=== PATIENT | male | born 1960 | race Caucasian/White ===

== ENCOUNTER → 2018-06-19 | Outpatient (CLI) | payer OTHER | END | disposition home or self-care (01) | LOC: PLD 07:54 → LAB SHORT 07:54 | DX: L57.0 Actinic keratosis (principal); L90.5 Scar conditions and fibrosis of skin | CPT/HCPCS: 88305 ==

== ENCOUNTER 2021-05-07 21:40 | Observation (INO) | payer OTHER ==
[~2021-05-07] VITALS: Ht 190.5 cm; Wt 104.3 kg
[2021-05-07 22:22] LABS: BASOPHILS ABSOLUTE AUTO 0.04 K/mm3 (0.00-0.23); BASOPHILS PERCENT AUTO 0 % (0-2); EOSINOPHILS ABSOLUTE AUTO 0.18 K/mm3 (0.00-0.68); EOSINOPHILS PERCENT AUTO 2 % (0-6); Hematocrit 41.8 % (37.0-53.0); IMMATURE GRAN ABSOLUTE AUTO 0.04 K/mm3 (0.00-0.10); IMMATURE GRAN PERCENT AUTO 0 % (0-1); LYMPHOCYTES ABSOLUTE AUTO 0.83 K/mm3 (0.84-5.20); LYMPHOCYTES PERCENT AUTO 9 % (21-46); MONOCYTES ABSOLUTE AUTO 0.64 K/mm3 (0.16-1.47); MONOCYTES PERCENT AUTO 7 % (4-13); Mean Corpuscular HGB Conc 33.5 g/dL (31.5-36.5); Mean Corpuscular Volume 87 fL (80-100); Mean Platelet Volume 9.1 fL (9.1-12.4); NEUTROPHILS ABSOLUTE AUTO 7.43 K/mm3 (1.96-9.15); NEUTROPHILS PERCENT AUTO 81 % (41-73); Platelet Count 280 K/mm3 (150-400); RDW Coefficient Variation 12.6 % (11.7-14.2); RDW Standard Deviation 39.8 fL (35.1-46.3); Red Blood Cell Count 4.82 M/mm3 (4.30-5.90); White Blood Cell Count 9.16 K/mm3 (4.00-11.30)
[2021-05-07 22:49] LABS: Alanine Aminotransfer (ALT/SGP 85 U/L (12-78); Albumin, Blood 3.6 g/dL (3.4-5.0); Albumin/Globulin Ratio 1.2 (0.8-1.8); Alk Phos 64 U/L (50-136); Anion Gap 5 mmol/L (6-16); Aspartate Aminotrans (AST/SGOT 29 U/L (12-37); Bilirubin, Total 0.6 mg/dL (0.1-1.0); Blood Urea Nitrogen 35 mg/dL (8-24); Bun/Creatinine Ratio 31.8 (12.0-20.0); CO2, Blood 27 mmol/L (21-32); Calcium, Blood 8.7 mg/dL (8.5-10.1); Chloride, Blood 107 mmol/L (98-108); Glomerular Filtration Rate >60 (60-); Glucose, Blood 111 mg/dL (70-99); Potassium, Blood 4.1 mmol/L (3.5-5.5); Sodium, Blood 139 mmol/L (136-145); Total Protein, Blood 6.6 g/dL (6.4-8.2); Troponin I <0.015 ng/mL (0.000-0.040)
[2021-05-08 06:16] LABS: BASOPHILS ABSOLUTE AUTO 0.04 K/mm3 (0.00-0.23); BASOPHILS PERCENT AUTO 1 % (0-2); EOSINOPHILS ABSOLUTE AUTO 0.11 K/mm3 (0.00-0.68); EOSINOPHILS PERCENT AUTO 1 % (0-6); Hematocrit 41.3 % (37.0-53.0); Hemoglobin 13.8 g/dL (13.5-17.5); IMMATURE GRAN ABSOLUTE AUTO 0.03 K/mm3 (0.00-0.10); IMMATURE GRAN PERCENT AUTO 0 % (0-1); LYMPHOCYTES ABSOLUTE AUTO 0.87 K/mm3 (0.84-5.20); LYMPHOCYTES PERCENT AUTO 10 % (21-46); MONOCYTES ABSOLUTE AUTO 0.89 K/mm3 (0.16-1.47); MONOCYTES PERCENT AUTO 10 % (4-13); Mean Corpuscular HGB 28.8 pg (26.0-34.0); Mean Corpuscular HGB Conc 33.4 g/dL (31.5-36.5); Mean Corpuscular Volume 86 fL (80-100); Mean Platelet Volume 9.5 fL (9.1-12.4); NEUTROPHILS ABSOLUTE AUTO 6.88 K/mm3 (1.96-9.15); NEUTROPHILS PERCENT AUTO 78 % (41-73); Platelet Count 260 K/mm3 (150-400); RDW Coefficient Variation 12.7 % (11.7-14.2); RDW Standard Deviation 39.7 fL (35.1-46.3); Red Blood Cell Count 4.79 M/mm3 (4.30-5.90); White Blood Cell Count 8.82 K/mm3 (4.00-11.30)
[2021-05-08 06:46] LABS: Alanine Aminotransfer (ALT/SGP 79 U/L (12-78); Albumin, Blood 3.5 g/dL (3.4-5.0); Albumin/Globulin Ratio 1.2 (0.8-1.8); Alk Phos 59 U/L (50-136); Anion Gap 7 mmol/L (6-16); Aspartate Aminotrans (AST/SGOT 23 U/L (12-37); Bilirubin, Total 1.3 mg/dL (0.1-1.0); Blood Urea Nitrogen 27 mg/dL (8-24); Bun/Creatinine Ratio 26.2 (12.0-20.0); CO2, Blood 24 mmol/L (21-32); CPK Creatine Kinase 164 U/L (39-308); Calcium, Blood 8.6 mg/dL (8.5-10.1); Chloride, Blood 109 mmol/L (98-108); Creatinine, Blood 1.03 mg/dL (0.60-1.20); Glomerular Filtration Rate >60 (60-); Glucose, Blood 104 mg/dL (70-99); Sodium, Blood 140 mmol/L (136-145); Total Protein, Blood 6.5 g/dL (6.4-8.2); Troponin I <0.015 ng/mL (0.000-0.040)
[2021-05-08 15:11] LABS: CPK Creatine Kinase 136 U/L (39-308); Troponin I <0.015 ng/mL (0.000-0.040)
[2021-05-08] MEDS ORDERED: ELIQUIS5 M2 PO (16:37)
[2021-05-08] MEDS ORDERED: ENTRESTO 24 MG1 EACH PO (16:38)
[2021-05-08] MEDS ORDERED: METO25ER PO (16:39)
--- NOTE | 2021-05-08 18:19 | NUR ---
ECHOCARDIOGRAM COMPLETE
== END 2021-05-08 17:08 | disposition home or self-care (01) ==
LOC: ER 21:40 → ERHOLD 21:41
PROVIDERS: Emergency Medicine; ADMIT Internal Medicine
DX: R07.89 Other chest pain (principal); I48.19 Other persistent atrial fibrillation; I50.21 Acute systolic (congestive) heart failure
CPT/HCPCS: 36415; 71046; 71260; 80053; 82550; 83880; 84484; 85025; 85379; 93005; 93010; 93306; 96372; 99285-25; A9270; G0378; J1650; Q9967

== ENCOUNTER 2021-06-03 06:00 | Day surgery (SDC) | payer OTHER ==
[~2021-06-03] VITALS: Ht 190.5 cm; Wt 100.0 kg
[~2021-06-03 06:00] MED LIST: ATOR40TA PO; ELIQUIS5 M2 PO; ENTRESTO 24 MG1 EACH PO; METO25ER PO
--- NOTE | 2021-06-03 08:14 | NUR ---
PT RETURNED TO RECOVERY ROOM IN [facility].RIGHT RADIAL TR BAND SITE SOFT NON-TENDER WITH NO HEMATOMA, NO PULSATILE BLEEDING AND WRIST BOARD IN PLACE. PT DENIES CHEST PAIN. PT EATING BREAKFAST. CALL LIGHT IN REACH.
--- NOTE | 2021-06-03 08:53 | NUR ---
R AC VENOUS SITE SINCE ARRIVAL BACK TO RECOVERY ROOM HAS BEEN SOFT NON-TENDER WITH NO HEMATOMA, NO BLEEDING WITH INTACT DRESSING.
--- NOTE | 2021-06-03 09:45 | NUR ---
7 CC OF AIR REMOVED OVER 10 MIN. OUT OF NOW DEFLATED RIGHT TR BAND-SOFT NO HEMATOMA, NO PULSATILE BLEEDING. NO CHANGES TO RIGHT AC SITE SOFT NO HEMATOMA, NO BLEEDING AND INTACT DRESSING.
--- NOTE | 2021-06-03 10:00 | NUR ---
NO CHANGES TO DEFLATED R TR BAND.
--- NOTE | 2021-06-03 10:36 | NUR ---
DISCHARGE INSTRUCTIONS REVIEWED AND ALL QUESTIONS ANSWERED.
--- NOTE | 2021-06-03 11:10 | NUR ---
DEFLATED R TR BAND REMOVED AND POLYMEM PLACED OVER RIGHT RADIAL SITE WITH WRIST BOARD IN PLACE. NO CHANGES TO EITHER RIGHT RADIAL SITE OR R AC SITE; BOTH SOFT WITH NO HEMATOMA, NO PULSATILE BLEEDING. 20 G IV DISCONTINUED FROM LEFT AC WITH INTACT CANNULA. PT ESCORTED OUT VIA WHEELCHAIR ESCORT.
== END 2021-06-03 11:00 | disposition home or self-care (01) ==
LOC: MHTC 06:00
DX: I42.0 Dilated cardiomyopathy (principal); I34.0 Nonrheumatic mitral (valve) insufficiency; I27.20 Pulmonary hypertension, unspecified; I48.19 Other persistent atrial fibrillation; E78.5 Hyperlipidemia, unspecified; I50.9 Heart failure, unspecified
CPT/HCPCS: 93460; 99152; C1769; C1887; C1894; J0690; J1644; J2250; J3010; J7030; J7050; Q9967

== ENCOUNTER 2021-06-30 06:29 | Day surgery (SDC) | payer OTHER ==
[~2021-06-30] VITALS: Ht 190.5 cm; Wt 101.0 kg
[2021-06-30] MEDS ORDERED: Amiodarone HCl200 MG PO (07:12)
--- NOTE | 2021-06-30 08:30 | NUR ---
PT VERBALIZES UNDERSTANDING WRITTEN AND VERBAL INSTRUCTIONS. IV DC'D. CATH INTACT. PRESSURE DSG APPLIED. PT DC TO HOME VIA WC BY S/O.
== END 2021-06-30 22:46 | disposition home or self-care (01) ==
LOC: MHTC 06:29
DX: I48.91 Unspecified atrial fibrillation (principal); R00.0 Tachycardia, unspecified; Z79.899 Other long term (current) drug therapy
CPT/HCPCS: 92960; 93005; 93010; J2704; J7030

== ENCOUNTER → 2022-12-29 | Outpatient (CLI) | payer OTHER ==
[~2022-12-29] MED LIST changes: +Amiodarone HCl200 MG PO
== END | disposition home or self-care (01) ==
LOC: LAB 12:17 → LAB SHORT 12:17
DX: L57.0 Actinic keratosis (principal)
CPT/HCPCS: 88305